=== PATIENT | female | born 1985 | race Caucasian/White ===

== ENCOUNTER 2023-06-03 18:27 | Emergency (ER) | payer MEDICAID, SELFPAY ==
[2023-06-03 18:27] VITALS: BP 118/95; PULSE 93; RESP 16; TEMP 36.4; O2SAT 97
--- NOTE | 2023-06-03 19:12 | EDS_ITS ---
HPI History of Present Illness Chief Complaint: Substance Abuse Narrative Narrative: 38-year-old female with history of drug abuse. She states she used to do heroin but has been on Suboxone. Has used this in months. She does use crack daily and the last use of crack was yesterday. Patient states she came from [place] today for detox from crack understanding she is on Suboxone. Patient denies other drug use. She denies alcohol abuse. She states she does not have any significant medical history other than some arthritis. PFSH [facility] Medical History (Updated 06/03/23 @ 19:36 by Sophia Avila) Substance abuse Allergy/AdvReac Type Severity Reaction Status Date / Time latex Allergy Intermediate Hives Verified 06/03/23 18:31 Penicillins Allergy Intermediate Hives Verified 06/03/23 18:31 amoxicillin [From Augmentin] Allergy Hives Verified 06/03/23 18:31 clavulanic acid Allergy Hives Verified 06/03/23 18:31 [From Augmentin] hydroxyzine [From Vistaril] Allergy Hives Verified 06/03/23 18:31 sulfamethoxazole Allergy Hives Verified 06/03/23 18:31 [From Bactrim] trimethoprim [From Bactrim] Allergy Hives Verified 06/03/23 18:31 Social History Smoking Status: Unknown if ever smoked ROS ROS ED Constitutional Constitutional ED: Denies chills, fever(s) or sweats Eyes Eyes: Denies blurry vision or change in vision ENT ENT ED: Denies ear pain or sore throat Cardiovascular Cardiovascular: Denies chest pain, palpitations or racing heartbeat Respiratory/Chest Respiratory/Chest: Denies cough, dyspnea or sputum Gastrointestinal Gastrointestinal: Denies abdominal pain, constipation, diarrhea, nausea or vomiting Genitourinary Genitourinary ED: Denies dysuria, hematuria or urinary frequency Musculoskeletal Musculoskeletal: Denies arthralgias, myalgias or neck pain Integumentary Denies abscess, Abrasions or rash Neurologic Neurologic: Denies headache(s), paresthesias or weakness Psychiatric Psychiatric: Denies anxiety, depression, suicidal ideation or suicidal thoughts Endocrine Endocrinology: Denies polydipsia or polyuria EXAM Physical Exam Const Vital Signs: 06/03/23 18:27 Temperature 97.5 F L Temperature Source Temporal Pulse Rate 93 Respiratory Rate 16 Blood Pressure 118/95 H Blood Pressure Mean 102 Pulse Ox 97 Oxygen Delivery Method Room Air Positive well nourished General Appearance ED: NAD; Negative for pallor HEENT Reports moist mucous membranes atraumatic Eyes PERRL and EOMs intact bilaterally Lymph Lymphatic: no lymphadenopathy noted Resp normal respiratory effort and clear to auscultation bilaterally Cardio regular rate and regular rhythm GI soft to palpation Neuro oriented x3 and CN's II-XII intact bilaterally Sensorium / Orientation: alert Psych mental status grossly normal Skin General Skin Exam: Negative for jaundice or pallor MDM MDM MDM Narrative Medical decision making narrative: Discussed case with the hospitalist who states they do not detox from crack. He recommended that I talk to [facility] and they agreed. They will be able to do a nonemergent evaluation for the patient for detox from crack as an outpatient. Patient given paperwork and resources for outpatient care. She is discharged in stable condition. Impression: 1. Crack cocaine abuse Lab Data Attestation: I reviewed the patient's lab results. Discharge Plan Triage Chief Complaint: Substance Abuse ED Provider: Jacobo Monterroso Dx/Rx/DC Orders Instructions: ED Drug Abuse Primary Care Provider: Madisyn Brown NP Referrals: Madisyn Brown NP, [facility] MANAGER-C [Primary Care Provider] - Disposition Disposition: Home, Self Care
--- NOTE | 2023-06-03 19:44 | ED.RN ---
Pt provided phone and phone numbers to [facility] and [facility]. Pt denies ability to find a ride, states she has no family or friends. Is asking us to call her insurance for a ride. Pt informed she was provided a phone so that she could do that for herself. Pt given time in her ed room to make calls but pt did not do so. Pt taken to waiting room and placed by the [employer] phone to make phone calls. Pt refuses stating she just wants wheeled outside to smoke. Pt informed she will need to either call her insurance to provide a ride as that's how she got here, call a family member or friend or use taxi services which she would need to pay for. Pt refusing to make any efforts on her own behalf to improve her situation.
== END 2023-06-03 19:49 | disposition home or self-care (01) ==
PROVIDERS: Emergency Provider Student in an Organized Health Care Education/Training Program; Visit Provider Student in an Organized Health Care Education/Training Program
DX: F14.10 Cocaine abuse, uncomplicated (principal)
CPT/HCPCS: 99282